=== PATIENT | male | born 1980 | race Hispanic/Latino ===

== ENCOUNTER 2020-03-16 21:46 | Emergency (ER) | payer OTHER ==
[~2020-03-16] VITALS: Ht 182.9 cm; Wt 81.6 kg
[2020-03-16] MEDS ORDERED: PANTOPRAZOLE 40 MG 10ML VIAL IV STA (21:51)
[2020-03-16] MEDS ORDERED: ONDANSETRON HCL INJ 2MG/ML 2ML 2 MG/ML VIAL IV STA (21:52)
--- NOTE | 2020-03-16 22:03 | Emergency Department Note ---
History of Present Illnes History of Present Illness Chief Complaint: Chest Pain History of Present Illness This is a 39 year old male PRESENTS TO THE ER C/O MIDSTERNAL CHEST PRESSURE WI TH N/V ONSET AT 2044 THIS EVENING; PT CURRENTLY DENIES CP AT THIS TIME; REPORTS EPIGASTRIC PAIN; DENIES SOB. Historian: Patient Arrival Mode: Car Onset (how long ago): hour(s) (1) Location: epigastric and chest Quality: pain, n/v Radiation: Reports non-radiation Severity: moderate Onset quality: sudden Duration (how long): hour(s) (1) Progression: partially resolved Chronicity: new Context: Denies recent illness, Denies recent surgery Relieving factors: none Exacerbating factors: none Associated symptoms: Reports denies other symptoms Past Medical/Family History Physician Review I have reviewed the patient's past medical and family history. Any updates have been documented here. Past Medical History Recent Fever: No Clinical Suspicion of Infectio: No New/Unexplained Change in Ment: No Past Medical History: Hypertension, [place], Anxiety Other Surgery: LT EYE ORBITAL SX RT TESTICLE LOWERED Social History Smoking Cessation: Never Smoker Alcohol Use: Occasional Any Illegal Drug Use: Yes (smokes marijauna daily) Family History Family history of heart diseas: Yes Other Last Tetanus: UTD Review of Systems Review of Systems Constitutional: Reports no symptoms EENTM: Reports no symptoms Cardiovascular: Reports as per HPI Respiratory: Reports no symptoms Gastrointestinal: Reports as per HPI Genitourinary: Reports no symptoms Musculoskeletal: Reports no symptoms Integumentary: Reports no symptoms Neurological: Reports no symptoms Psychological: Reports no symptoms Endocrine: Reports no symptoms Hematological/Lymphatic: Reports no symptoms Physical Exam Related Data Allergies: Coded Allergies: No Known Allergies (Unverified , 03/16/20) Triage Vital Signs Vital Signs Date Time Temp Pulse Resp B/P (MAP) Pulse Ox O2 Delivery O2 Flow Rate FiO2 03/16/20 21:53 99.8 81 20 187/117 100 Vital signs reviewed: Yes Physical Exam CONSTITUTIONAL Constitutional: Present well-developed, Present well-nourished HENT HENT: Present normocephalic, Present atraumatic, Present oropharynx clear/moist, Present nose normal HENT L/R: Present left ext ear normal, Present right ext ear normal EYES Eyes: Reports PERRL, Reports conjunctivae normal NECK Neck: Present ROM normal PULMONARY Pulmonary: Present effort normal, Present breath sounds normal CARDIOVASCULAR Cardiovascular: Present regular rhythm, Present heart sounds normal, Present capillary refill normal, Present normal rate GASTROINTESTINAL Abdominal: Present soft, Present bowel sounds normal, Present tender (moderate epigastric tenderness) GENITOURINARY Genitourinary: Present exam deferred SKIN Skin: Present warm, Present dry MUSCULOSKELETAL Musculoskeletal: Present ROM normal NEUROLOGICAL Neurological: Present alert, Present oriented x 3, Present no gross motor or sensory deficits PSYCHOLOGICAL Psychological: Present mood/affect normal, Present judgement normal Results Laboratory Laboratory Laboratory Tests Test 03/16/20 21:51 White Blood Count 8.55 x10e3/uL (4.8-10.8) Red Blood Count 5.20 x10e6/uL (4.3-5.7) Hemoglobin 16.4 g/dL (14.0-18.0) Hematocrit 47.6 % (38.2-49.6) Mean Corpuscular Volume 91.5 fL (81-99) Mean Corpuscular Hemoglobin 31.5 pg (28-32) Mean Corpuscular Hemoglobin Concent 34.5 g/dL (31-35) Red Cell Distribution Width 12.6 % (11.7-14.4) Platelet Count 230 x10e3/uL (140-360) Neutrophils (%) (Auto) 62.6 % (38.7-80.0) Lymphocytes (%) (Auto) 23.0 % (18.0-39.1) Monocytes (%) (Auto) 11.6 % (4.4-11.3) Eosinophils (%) (Auto) 2.0 % (0.0-6.0) Basophils (%) (Auto) 0.2 % (0.0-1.0) Neutrophils # (Auto) 5.4 (2.1-6.9) Lymphocytes # (Auto) 2.0 (1.0-3.2) Monocytes # (Auto) 1.0 (0.2-0.8) Eosinophils # (Auto) 0.2 (0.0-0.4) Basophils # (Auto) 0.0 (0.0-0.1) Absolute Immature Granulocyte (auto 0.05 x10e3/uL (0-0.1) Sodium Level 141 mmol/L (136-145) Potassium Level 3.6 mmol/L (3.5-5.1) Chloride Level 106 mmol/L (98-107) Carbon Dioxide Level 25 mmol/L (22-29) Anion Gap 13.6 mmol/L (8-16) Blood Urea Nitrogen 15 mg/dL (7-26) Creatinine 0.85 mg/dL (0.72-1.25) Estimat Glomerular Filtration Rate > 60 ML/MIN (60-) BUN/Creatinine Ratio 18 (6-25) Glucose Level 118 mg/dL (74-118) Calcium Level 9.4 mg/dL (8.4-10.2) Total Bilirubin 1.2 mg/dL (0.2-1.2) Aspartate Amino Transf (AST/SGOT) 21 IU/L (5-34) Alanine Aminotransferase (ALT/SGPT) 20 IU/L (0-55) Alkaline Phosphatase 96 IU/L (40-150) Creatine Kinase 77 IU/L (30-200) Creatine Kinase MB 0.60 ng/mL (0-5.0) Troponin I 0.008 ng/mL (0-0.300) Total Protein 7.6 g/dL (6.5-8.1) Albumin 4.4 g/dL (3.5-5.0) Globulin 3.2 g/dL (2.3-3.5) Albumin/Globulin Ratio 1.4 (0.8-2.0) Amylase Level 79 U/L (25-125) Lipase 41 U/L (8-78) Lab results reviewed: Yes Imaging Imaging results reviewed: Yes Impressions EXAMINATION: AP chest. COMPARISON: None CLINICAL HISTORY: Chest pain DISCUSSION: Lines/tubes: None. Lungs: The lungs are well inflated and clear. There is no evidence of pneumonia or pulmonary edema. Pleura: There is no pleural effusion or pneumothorax. Heart and mediastinum: Cardiomediastinal silhouette is unremarkable. Pulmonary vasculature is normal. Bones and soft tissues: No acute bony abnormalities. IMPRESSION: No acute cardiopulmonary abnormalities. Signed by: Dr. Isidro Razo M.D. 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: Interpreted by ED physician Date: Mar 16, 2020 Time: 21:40 Rhythm: sinus rhythm Rate: normal BPM: 86 QRS axis: right ST segments normal: Yes T waves normal: Yes Other findings: no other findings Clinical Impression: non-specific ECG Assessment & Plan Medical Decision Making MDM pt with c/o chest pain that starts in epigastric area with n/v, pt is tender to epigastric area cbc, cmp, ekg, amylase, lipase, cxr, cardiac enzymes ordered to eval for myocardial infarction, pancreatitis, elevated lft's, intrathoracic abnormality, electrolyte abnormality protonix 40 mg iv ordered, zofran 4 mg iv ordered PT WITH GASTRITIS AND REFLUX, DISCHARGED WITH PROTONIX 40 MG PO DAILY #15, ZOFRAN ODT 4 MG 1 SL Q 6 HOURS PRN NAUSEA, PT INSTRUCTED ON BLAND DIET, PT REFERRED TO DR Jackie LOPEZ FOR FOLLOW UP. Assessment & Plan Final Impression: (1) Gastritis (2) Acid reflux Last Vital Signs Date Time Temp Pulse Resp B/P (MAP) Pulse Ox O2 Delivery O2 Flow Rate FiO2 03/16/20 21:53 99.8 81 20 187/117 100 Medications in the ED Pantoprazole Sodium 40 mg NOW STAT IV ; Start 03/16/20 at 21:51; Stop 03/16/20 at 21:52; Status UNV Ondansetron HCl 4 mg NOW STAT IV ; Start 03/16/20 at 21:52; Stop 03/16/20 at 21:53; Status UNV MARIA L FRASER MD Mar 16, 2020 22:03
[2020-03-16 22:16] LABS: BASOPHILS % 0.2 % (0.0-1.0); EOSINOPHILS # (AUTO) 0.2 (0.0-0.4); HEMATOCRIT 47.6 % (38.2-49.6); HEMOGLOBIN 16.4 g/dL (14.0-18.0); MEAN CORPUSCULAR HEMOGLOBIN 31.5 pg (28-32); MEAN CORPUSCULAR HGB CONC 34.5 g/dL (31-35); MEAN CORPUSCULAR VOLUME 91.5 fL (81-99); MONOCYTES % 11.6 % (4.4-11.3); NEUTROPHILS # (AUTO) 5.4 (2.1-6.9); NEUTROPHILS % 62.6 % (38.7-80.0); PLATELET COUNT 230 x10e3/uL (140-360); RED CELL DISTRIBUTION WIDTH 12.6 % (11.7-14.4)
[2020-03-16 22:34] LABS: ALANINE AMINOTRANSFERASE 20 IU/L (0-55); ALBUMIN 4.4 g/dL (3.5-5.0); ALBUMIN/GLOBULIN RATIO 1.4 (0.8-2.0); ALKALINE PHOSPHATASE 96 IU/L (40-150); ANION GAP 13.6 mmol/L (8-16); BLOOD UREA NITROGEN 15 mg/dL (7-26); BUN/CREATININE RATIO 18 (6-25); CALCIUM 9.4 mg/dL (8.4-10.2); CARBON DIOXIDE 25 mmol/L (22-29); CHLORIDE 106 mmol/L (98-107); CREATINE KINASE 77 IU/L (30-200); CREATININE, SERUM 0.85 mg/dL (0.72-1.25); EST GLOMERULAR FILTRATION RATE > 60 ML/MIN (60-); GLUCOSE 118 mg/dL (74-118); POTASSIUM 3.6 mmol/L (3.5-5.1); SODIUM 141 mmol/L (136-145)
[2020-03-16 22:56] LABS: AMYLASE 79 U/L (25-125); LIPASE 41 U/L (8-78)
--- NOTE | 2020-03-16 23:36 | Diagnostic Imaging Report ---
EXAMINATION: AP chest. COMPARISON: None CLINICAL HISTORY: Chest pain DISCUSSION: Lines/tubes: None. Lungs: The lungs are well inflated and clear. There is no evidence of pneumonia or pulmonary edema. Pleura: There is no pleural effusion or pneumothorax. Heart and mediastinum: Cardiomediastinal silhouette is unremarkable. Pulmonary vasculature is normal. Bones and soft tissues: No acute bony abnormalities. IMPRESSION: No acute cardiopulmonary abnormalities. Signed by: Dr. Isidro Razo M.D. on 03/16/2020 11:33 PM
== END 2020-03-17 02:46 | disposition home or self-care (01) ==
LOC: ER 21:46
DX: R07.89 Other chest pain (principal); R10.13 Epigastric pain; K29.70 Gastritis, unspecified, without bleeding; K21.9 Gastro-esophageal reflux disease without esophagitis; I10 Essential (primary) hypertension; F41.9 Anxiety disorder, unspecified; I25.2 Old myocardial infarction
CPT/HCPCS: 36415; 71045; 80053; 82150; 82550; 82553; 83690; 84484; 85025; 93005; 99284; C9113; J2405